=== PATIENT | female | born 1985 | race American Indian/Alaskan Native ===

== ENCOUNTER 2017-07-11 18:21 | Emergency (ER) | payer OTHER ==
[2017-07-11 22:04] LABS: Basophils # (Auto) 0.1 K/mm3 (0.0-0.1); Basophils % (Auto) 1.1 % (0.0-1.8); Eosinophils # (Auto) 0.1 K/mm3 (0.0-0.4); Eosinophils % (Auto) 1.5 % (0.0-4.3); Hematocrit 41.1 % (30.3-42.9); Hemoglobin 13.7 gm/dl (10.1-14.3); Lymphocytes # (Auto) 2.7 K/mm3 (1.2-5.4); Lymphocytes % (Auto) 28.6 % (13.4-35.0); Mean Corpuscular HGB Conc 33 % (30-34); Mean Corpuscular Hemoglobin 28 pg (28-32); Mean Corpuscular Volume 83 fl (79-97); Monocytes # (Auto) 0.7 K/mm3 (0.0-0.8); Monocytes % (Auto) 7.5 % (0.0-7.3); Platelet Count 373 K/mm3 (140-440); Red Blood Count 4.96 M/mm3 (3.65-5.03); Red Cell Distribution Width 12.7 % (13.2-15.2)
--- NOTE | 2017-07-12 00:51 | Ultrasound Report ---
FINAL REPORT EXAM: US OB TRANSVAGINAL HISTORY: Vaginal bleeding TECHNIQUE: Transvaginal imaging was obtained of the pelvis. Doppler interrogation of the uterus was also obtained. FINDINGS: The uterus is retroverted and contains a gestational sac. Within the gestational sac is a yolk sac and pole. The crown-rump length of the pole is 6.6 millimeters corresponding to a 6 weeks 4 day IUP. The heart is 125 BPM. The cervix is closed. There is several small nabothian cysts in the cervix. Adjacent to the gestational sac is a small subchorionic hemorrhage measuring 18 millimeters x 9 millimeters x 13 millimeters. Free fluid is not seen. The right ovary measures 4.5 cm x 2.6 cm x 3.6 cm. Within the right ovary is a complex cyst measuring 2.4 cm in diameter. The left ovary is normal size contour and echotexture measuring 3.6 cm x 1.8 cm x 3.1 cm. IMPRESSION: Single viable IUP, 6 weeks 4 days. heart is 125 BPM. Small subchorionic hemorrhage measuring 18 millimeters x 9 millimeters x 13 millimeters. No evidence of free fluid the pelvis.
--- NOTE | 2017-07-12 00:53 | Ultrasound Report ---
FINAL REPORT EXAM: US OB < = 14 WEEKS FETUS HISTORY: Vaginal bleeding TECHNIQUE: Transabdominal imaging was obtained of the pelvis with Doppler interrogation of the uterus and adnexa. FINDINGS: The uterus is retroverted and contains a gestational sac. Within the sac is a yolk sac and pole. The pole measures 6.6 millimeters and crown-rump length. This corresponds to a 6 weeks 4 day IUP. The heart rate is 125 BPM. The cervix is closed. There are several nabothian cysts in the cervix. Adjacent to the gestational sac is a hypoechoic area compatible with a subchorionic hemorrhage measuring 18 millimeters x 9 millimeters x 13 millimeters. Free fluid is not seen. The maternal left ovary is normal size contour and echotexture measuring 3.6 cm x 1.8 cm x 3.1 cm. The maternal right ovary measures 4.5 cm x 2.6 cm x 3.6 cm and contains a complex cyst measuring 2.4 cm in diameter. IMPRESSION: Single viable IUP, 6 weeks 4 days. heart is 125 BPM. Small subchorionic hemorrhage as measured. Probable right corpus luteum cyst measuring 2.4 cm in diameter.
[2017-07-12 03:44] LABS: Bilirubin,Urine NEG (Negative); Blood,Urine SM (Negative); Color,Urine Yellow (Yellow); Mucus,Urine 3+ /HPF; Nitrite,Urine NEG (Negative); Protein,Urine <15 mg/dL mg/dL (Negative); Urobilinogen,Urine < 2.0 mg/dL (<2.0)
[2017-07-12 04:11] VITALS: BP 118/80
== END 2017-07-11 21:45 | disposition left against medical advice (07) ==
LOC: ED 18:21
DX: O46.91 Antepartum hemorrhage, unspecified, first trimester (principal); Z53.21 Procedure and treatment not carried out due to patient leaving prior to being seen by health care provider
CPT/HCPCS: 36415; 76801; 76817; 81001; 84702; 85025; 86850; 86900; 86901

== ENCOUNTER 2019-08-06 15:27 | Outpatient (CLI) | payer MEDICAID, OTHER ==
[2019-08-06 15:54] VITALS: BP 116/70
[2019-08-06] MEDS ORDERED: LACTATED RINGERS 1,000 ML IV SCH (17:00)
--- NOTE | 2019-08-06 18:35 | Ultrasound Report ---
OBSTETRICAL ULTRASOUND WITH BIOPHYSICAL PROFILE HISTORY: Increased movement. FINDINGS: Limited obstetrical ultrasound was performed. A viable intrauterine is dated 36 w eeks 4 days by ultrasound. Estimated weight is 6 lbs. 8 oz. (51%). position is cephalic. heart tones are 141 bpm. Amniotic fluid index is 14.9 cm. Biophysical profile is 6-8. A score 0 was received for breathing movements. IMPRESSION: 1. Viable intrauterine dated 36 weeks 4 days. 2. Biophysical profile 6/8. Breathing movements were not identified. Signer Name: Viral Wolf MD Signed: 08/06/2019 6:30 PM Workstation Name: [id number]
[2019-08-06 18:49] LABS: Bacteria,Urine 2+ /HPF (Negative); Bilirubin,Urine NEG (Negative); Blood,Urine NEG (Negative); Color,Urine Yellow (Yellow); Mucus,Urine FEW /HPF; Protein,Urine <15 mg/dL mg/dL (Negative); Urobilinogen,Urine < 2.0 mg/dL (<2.0)
--- NOTE | 2019-08-06 19:10 | Event Note ---
Date: 08/06/19 (Decreased movement) Pt @ 36.4 wks, presented to triage with c/o decreased movement. She denies vaginal bleeding, LOF, ctxs. However, movement could be heard and NST for reactive. BPP was performed and was 6/8, off for breathing. I went to see the pt after the BPP was performed and heard 3 movements in 6 minutes. I stood at the bedside for an additional 5 minutes and heard 4 more movements. Pt stated that she did not feel the movements, but heard them on the monitor. Consulted with Dr. Guido regarding pt BPP, NST. Plan is to have pt follow up in the office this week, and keep scheduled appointment with [facility] on . I explained this to the pt and she was given strict precautions and kick counts were explained to her. Pt was discharged home in stable condition.
== END 2019-08-06 19:05 | disposition home or self-care (01) ==
LOC: TRG 15:27
PROVIDERS: ATTEND Obstetrics & Gynecology
DX: O36.8130 Decreased fetal movements, third trimester, not applicable or unspecified (principal); Z3A.36 36 weeks gestation of pregnancy
CPT/HCPCS: 59025; 76816; 76819; 81001

== ENCOUNTER 2019-08-21 09:28 | Inpatient (IN) | payer MEDICAID, OTHER ==
--- NOTE | 2019-08-20 17:26 | History and Physical Report ---
History of Present Illness Date of examination: 08/17/19 Chief complaint: Repeat C/S with h/o IUFD in the third trimester History of present illness: Patient scheduled for C/S at 38 5/7weeks d/t AMFM recommendations Past History : 6 Term Births: 2 Premature Births: 0 Living Children: 1 Para: 2 Mult. Births: 0 Prev : 2 Prev. attempt? 1 Aborta: 3 Elect. Ab: 2 Spont. Ab: 1 Ectopics: 0 # 1 Delivery date: 11/02/2006 Weeks Gestation: 41 Delivery type: Anesthesia type: epidural Delivery location: [facility] Infant Sex: Male weight: 7lb 15oz Comments: NRFHT hyperemesis # 2 Delivery date: 11/28/2008 Delivery type: EAB # 3 Delivery date: 08/2016 Delivery type: EAB # 4 Delivery date: 02/09/2018 Weeks Gestation: 39 labor: no Delivery type: Anesthesia type: epidural Delivery location: [facility] Infant Sex: Female Name: Bridget Martino Comments: Pre e. mag. placental abruption. demise, blood transfusion, MARY CARMEN sent for records # 5 Delivery date: 11/05/2018 Delivery type: SAB Comments: blighted ovum Past Medical History: Reviewed history from 09/23/2010 and no changes required: asthma. last inhaler use September pre eclampsia blood transfusion hyperemesis Past Surgical History: Reviewed history from 07/26/2017 and no changes required: D&C: (2008)EAB 2017 () Past Medical History Abnormal PAP: negative TARAH Exposure: negative Infertility: negative Uterine Anomaly: negative Uterine Surgery (not C/S): negative Other Gynecologic Problems: negative Family Hx: DM-MGM Lung CA-MGM smokier No Family History of Breast Cancer No Family History of Colon Cancer No Family History of Ovarvian Cancer No Family History of DVT/PE on OCP mother- asthma Social Hx: Patient is single, lives with FOC and son no e/t/d works as mail room [employer] Infection History Hx of STD: none HIV Risk Eval: low risk Hepatitis B Risk Eval: low risk Personal hx. of genital herpes: no Partner hx. of genital herpes: no Rash, Viral, or Febrile illness since last LMP? no Varicella/Chicken Pox Status: Immunized TB Risk: no Infection History Comments: hsv2 Genetic History Congenital Heart Defect: Mom: no Dad: no Elvis Disease: Mom: no Dad: no Thalassemia Mom: no Dad: no Neural Tube Defect Mom: no Dad: no Down's Syndrome Mom: no Dad: no Charles-Sachs Mom: no Dad: no Sickle Cell Disease/Trait Mom: no Dad: no Hemophilia Mom: no Dad: no Muscular Dystrophy Mom: no Dad: no Cystic Fibrosis Mom: no Dad: no Shaina Chorea Mom: no Dad: no Mental Retardation Mom: no Dad: no Fragile X Mom: no Dad: no Other Genetic/Chromosomal Disorder Mom: no Dad: no Child w/other defect Mom: no Dad: no Enviromental Exposures Enviromental Exposures Reviewed Xray Exposure: no Medication, drug, or alcohol use since LMP: no Chemical/Other Exposure: no Exposure to Cat Liter: no Hx of Parvovirus (Fifth Disease): no Occupational Exposure to Children: none Active Medications (reviewed today): PRO AIR Current Allergies (reviewed today): * SULFA (Critical) Physical Exam General appearance: well nourished, healthy appearing, no distress Chest/Lungs: respiratory effort normal, lungs clear to auscultation Cardiovascular: normal rate and rhythm Past History - Obstetrical History Expected Date of Delivery: 08/30/19 Actual Gestation: 38 Week(s) 4 Day(s) : 8 Medications and Allergies Allergies Allergy/AdvReac Type Severity Reaction Status Date / Time Sulfa (Sulfonamide Allergy Hives Verified 07/11/17 21:20 Antibiotics) sulfamethoxazole Allergy Hives Verified 07/11/17 21:20 [From Bactrim] trimethoprim [From Bactrim] Allergy Hives Verified 07/11/17 21:20 Results All other labs normal. Assessment and Plan - Patient Problems (1) 38 weeks gestation of Status: Acute (2) Maternal care due to low transverse uterine scar from previous delivery Status: Chronic Plan to address problem: Consent reviewed and signed . The risks and alternatives for this surgery were reviewed with the patient. She was informed of possible bleeding, infection, injury to bowel, bladder, ureters or other adjacent organs. The patient was instructed/informed the following: The normal length of hospital stay for this procedure. Nothing to eat or drink up to 8hours before arriving to the hospital Clear liquids up to 2hours before arriving to the hospital Pre-op instruction sheets given. Wound care instructions given. Infection precautions reviewed, patient to call for any signs or symptoms of infection. The usual discomforts associated with this procedure were detailed. Patient was given ample opportunity to have all her questions answered before signing in formed consent. She declines sterilization, she was informed she will be at increased risks for poor outcome with complications with each addn'l and c/s. She still declined BTL (3) Supervision of with other poor reproductive or obstetric history, third trimester Status: Acute (4) BMI 40.0-44.9, adult Status: Chronic (5) Asthma Status: Chronic
[2019-08-21] MEDS ORDERED: ceFAZolin/Water 2 GM/20 ML 2 GM/20 ML SYRINGE IV NR (10:00)
[2019-08-21] MEDS ORDERED: METOCLOPRAMIDE 10 MG/2 ML INJ IV NR (10:00)
[2019-08-21] MEDS ORDERED: OXYTOCIN 20 UNIT/1000ML DRIP 20 UNITS/1,000 ML BAG IV SCH ×2 (10:00→15:12)
[2019-08-21] MEDS ORDERED: BICITRA ORAL LIQD 30ML PO NR (10:00)
[2019-08-21] MEDS ORDERED: FAMOTIDINE 20 MG/2 ML INJ IV NR (10:00)
[2019-08-21] MEDS: LACTATED RINGERS 1,000 ML IV SCH ×2 (10:35→11:36)
[2019-08-21 10:44] LABS: Hematocrit 30.1 % (30.3-42.9); Hemoglobin 9.5 gm/dl (10.1-14.3); Mean Corpuscular HGB Conc 32 % (30-34); Mean Corpuscular Volume 71 fl (79-97); Platelet Count 297 K/mm3 (140-440); Red Blood Count 4.27 M/mm3 (3.65-5.03); Red Cell Distribution Width 17.8 % (13.2-15.2)
--- NOTE | 2019-08-21 11:17 | Anesthesia Consultation ---
Anesthesia Consult and Med Hx Date of service: 08/21/19 - Airway Anesthetic Teeth Evaluation: Poor ROM Head & Neck: Adequate Mental/Hyoid Distance: Adequate Mallampati Class: Class III Intubation Access Assessment: Probably Good - Pulmonary Exam CTA: Yes - Cardiac Exam Cardiac Exam: RRR - Pre-Operative Health Status ASA Pre-Surgery Classification: ASA3 Proposed Anesthetic Plan: Spinal - Pre-Anesthesia Comment Pre-Anesthesia Comments: PSH: C/Section x 2, no complications - Pulmonary Hx Smoking: No Hx Asthma: Yes Hx Respiratory Symptoms: No SOB: No COPD: No Home Oxygen Therapy: No Hx Pneumonia: No Hx Sleep Apnea: No - Cardiovascular System Hx Hypertension: No Hx Coronary Artery Disease: No Hx Heart Attack/AMI: No Hx Angina: No Hx Percutaneous Transluminal Coronary Angioplasty (PTCA): No Hx Cardia Arrhythmia: No Hx Pacemaker: No Hx Internal Defibrillator: No Hx Valvular Heart Disease: No Hx Heart Murmur: No Hx Peripheral Vascular Disease: No - Central Nervous System Hx Neuromuscular Disorder: No Hx Seizures: No CVA: No Hx Back Pain: Yes Hx Psychiatric Problems: No - Gastrointestinal Hx Ulcer: No Hx Gastroesophageal Reflux Disease: Yes - Endocrine Hx Renal Disease: No Hx End Stage Renal Disease: No Hx Cirrhosis: No Hx Liver Disease: No Hx Insulin Dependent Diabetes: No Hx Non-Insulin Dependent Diabetes: No Hx Thyroid Disease: No Hx Hypothyroidism: No Hx Hyperthyroidism: No - Hematic Hx Anemia: No Hx Sickle Cell Disease: No - Other Systems Hx Alcohol Use: No Hx Substance Use: No Hx Cancer: No Hx Obesity: Yes
[2019-08-21] MEDS ORDERED: HYDROmorphone 1 MG/1 ML INJ IV PRN (11:19)
[2019-08-21] MEDS ORDERED: ONDANSETRON 4 MG/2 ML INJ IV PRN (11:19)
--- NOTE | 2019-08-21 11:19 | Anesthesia Day of Surgery ---
Anesthesia Day of Surgery - Day of Surgery Patient Examined: Yes Patient H&P Reviewed: Yes Patient is NPO: Yes Beta Blockers: No Cardiac Clearance: No Pulmonary Clearance: No Chilango's Test: N/A
[2019-08-21] MEDS ORDERED: FLU VACC QUAD 2019-20 (3 YR UP)/PF 60 MCG/0.5 ML SYRINGE IM ONE (11:24)
[2019-08-21] MEDS ORDERED: ONDANSETRON 4 MG/2 ML INJ ONE (11:27)
[2019-08-21] MEDS ORDERED: DEXMEDETOMIDINE 200 MCG/2 ML VIAL IV ONE (11:27)
[2019-08-21] MEDS ORDERED: ceFAZolin/STERILE WATER 2 GM/20 ML SYRINGE IV ONE (11:52)
[2019-08-21] MEDS ORDERED: SODIUM CHLORIDE 0.9% IRR 1,500 ML BOTTLE IR ONE (12:05)
[2019-08-21] MEDS ORDERED: WATER FOR IRRIG STERILE 1,500 ML BOTTLE IR ONE (12:05)
[2019-08-21] MEDS ORDERED: KETOROLAC 30 MG/1 ML INJ ONE (12:24)
--- NOTE | 2019-08-21 13:08 | Operative Report ---
Operative Report Operative Report: Date of operation: 08/21/2019 Pre-operative diagnosis: 1. 38 weeks and 5 days weeks gestational age 2. History of IUFD third trimester 3. Delivery at this date as recommended by maternal- medicine 4. BMI 41kg/m2 5. Previous delivery x2 Post-operative diagnosis: 1. 38 weeks and 5 days weeks gestational age 2. History of IUFD third trimester 3. Delivery at this date as recommended by maternal- medicine 4. BMI 41kg/m2 5. Previous delivery x2 Procedure name(s): Low transverse delivery Surgeon: Juany Lechuga MD Field Crew Chief: [] Anesthesia: Spinal EBL: 700 mL Urine output: 100 mL of clear urine out at the end of the procedure Fluids: [] mL Findings: Liveborn male weight 7 Lbs. 3 oz. Apgars of 9 and 9 at one and 5 minutes Indications: [] Procedure: Patient was taking to the operating room. Spinal anesthesia was placed. Patient was then prepped and draped in the usual sterile fashion Timeout was performed. Once an appropriate level of anesthesia was noted, a Pfannenstiel incision was made and extended the fascia which was incised and extended lateral direction. The overlying fascia was sharply dissected away from the underlying rectus muscles in the superior inferior direction. The midline was entered bluntly. Bladder blade was placed. Vesicouterine fold was incised with blunt dissection bladder flap was created. A transverse incision was made in the lower uterine segment and extended superolateral direction with finger fractionation. Clear fluid was noted. was delivered from the cephalic position, with spontaneous cry and excellent tone. Mouth and nose bulb suctioned. Cord was doubly clamped and cut was given to the resuscitation team present. Placenta was delivered. The uterus was exteriorized and cleaned of any further placental tissue and products of conception. Uterine incision was approximated using 0 Vicryl in a running interlocking stitch followed by further suture of 0 Vicryl in imbricating fashion. When hemostasis was noted the uterus was allowed back in the pelvic cavity. Pelvis was irrigated with warm normal saline. Once hemostasis was noted the rectus muscles were approximated using 3-0 Vicryl interrupted simple stitches 3. Once hemostasis was noted the fascia was approximated using 0 Vicryl simple running stitch. The incision was irrigated with warm saline, once hemostasis as noted, skin was approximated using 4-0 Vicryl on a Matt needle in a subcuticular manner. Counts were correct x3. Patient tolerated the procedure well, she was taken to recovery room in stable condition.
[2019-08-21] MEDS ORDERED: MORPHINE 4 MG/1 ML INJ IV PRN (15:12)
[2019-08-21] MEDS ORDERED: PROMETHAZINE 25 MG RECT SUPP PR PRN (15:12)
[2019-08-21] MEDS ORDERED: MORPHINE 2 MG/1 ML INJ IV PRN (15:12)
[2019-08-21] MEDS ORDERED: ACETAMINOPHEN 650 MG RECT SUPP PR PRN (15:12)
[2019-08-21] MEDS ORDERED: WITCH HAZEL/ GLYCERIN PAD TP PRN (15:12)
[2019-08-21] MEDS ORDERED: D5W/LACTATED RINGERS 1,000 ML IV SCH (15:12)
[2019-08-21] MEDS ORDERED: MAGNESIUM HYDROXIDE (MOM) ORAL LIQD UDC PO PRN (15:12)
[2019-08-21] MEDS ORDERED: SIMETHICONE 80 MG CHEW TAB PO PRN (15:12)
[2019-08-21] MEDS ORDERED: LANOLIN/ZINC/DIMETHICONE (LANSINOH) 7 GM TP PRN (15:12)
[2019-08-21] MEDS ORDERED: NALOXONE 0.4 MG/1 ML INJ IV PRN (15:12)
[2019-08-21] MEDS: ACETAMINOPHEN 325 MG TAB PO SCH ×2 (15:52→20:40)
[2019-08-21] MEDS: KETOROLAC 30 MG/1 ML INJ IV SCH ×2 (18:13→23:36)
[2019-08-21] MEDS: ceFAZolin/NS 1 GM/50 ML 1 GM/50 ML BAG IV SCH (20:44)
[2019-08-22 01:08] LABS: Hematocrit 26.4 % (30.3-42.9); Hemoglobin 8.4 gm/dl (10.1-14.3)
[2019-08-22] MEDS: ACETAMINOPHEN 325 MG TAB PO SCH ×2 (03:32→10:06)
[2019-08-22] MEDS: KETOROLAC 30 MG/1 ML INJ IV SCH ×2 (05:45→13:09)
[2019-08-22] MEDS: ceFAZolin/NS 1 GM/50 ML 1 GM/50 ML BAG IV SCH (05:55)
[2019-08-22] MEDS ORDERED: TETANUS,DIPH,PERTUSS(ACELL) VACCINE 0.5 ML SYRINGE IM ONE (06:00)
--- NOTE | 2019-08-22 08:17 | Progress Note ---
Assessment and Plan A: 34 y.o. rpt @ term. States pain not controlled by pain medication, but not taking pain medication as ordered. P: Continue with care. Advance diet as tolerated. Encourage ambulation. Pt to get pain medication as ordered. RN and pt aware. Anticipate d/c home 08/23. Subjective - Subjective Patient reports: appetite normal, voiding normally, flatus, pain poorly controlled (Pt has not been taking pain medication as ordered or asking for pain medication. Discussed pain medication and when to take. ), ambulating normally Girard: doing well Objective - Vital Signs Latest vital signs: Vital Signs Temp Pulse Resp BP BP Pulse Ox 08/22/19 05:19 98.8 F 90 20 110/65 96 08/22/19 01:18 98.0 F 83 20 129/67 97 08/21/19 23:36 18 08/21/19 20:35 98.0 F 77 18 123/63 99 08/21/19 15:09 97.4 F L 79 16 122/60 100 08/21/19 13:55 84 20 109/68 100 08/21/19 13:40 94 H 20 118/79 100 08/21/19 13:25 91 H 19 93/63 100 08/21/19 13:20 82 19 111/64 100 08/21/19 13:15 77 18 114/59 100 08/21/19 13:10 97.7 F 82 18 105/62 100 08/21/19 11:07 98.3 F 08/21/19 09:53 114 H 97 08/21/19 09:50 121/71 Intake and Output 08/21/19 08/22/19 08/22/19 22:59 06:59 14:59 Intake Total 770 240 Output Total 2450 1300 Balance -1680 -1060 Intake: IV 50 ANCEF/NS 1 GM/50 ML 1 gm 50 In 50 ml @ 100 mls/hr IV Q8H [facility] Rx#:[id number] Oral 720 240 Output: Urine 2450 1300 Indwelling Catheter 1450 Uretheral ([place]ancey) 1000 400 Void 900 Other: Total, Intake Amount 240 120 Total, Output Amount 700 300 - Exam Breasts: Present: deferred Cardiovascular: Present: Regular rate, Normal S1, Normal S2 Lungs: Present: Clear to auscultation Abdomen: Present: normal appearance, soft Vulva: both: normal Uterus: Present: normal, firm Extremities: Present: normal Deep Tendon Reflex Grade: Normal +2 Incision: Present: normal, dry, intact, dressed (Dressing intact no drainage noted. Due to come off this afternoon per RN. ) - Labs Labs: Abnormal lab results 08/21/19 08/22/19 Range/Units 10:15 00:36 Hgb 9.5 L 8.4 L (10.1-14.3) gm/dl Hct 30.1 L 26.4 L (30.3-42.9) % MCV 71 L (79-97) fl MCH 22 L (28-32) pg RDW 17.8 H (13.2-15.2) %
[2019-08-22] MEDS: oxyCODONE /ACETAMINOPHEN 5-325MG TAB PO PRN ×3 (09:04→22:42)
[2019-08-22] MEDS ORDERED: FLU VACC QUAD 2019-20 (3 YR UP)/PF 60 MCG/0.5 ML SYRINGE IM ONE (12:00)
[2019-08-22] MEDS ORDERED: IBUPROFEN 800 MG TAB PO PRN (12:54)
--- NOTE | 2019-08-22 20:59 | Post Anesthesia Evaluation ---
- Post Anesthesia Evaluation Patient Participated: Yes Airway Patent: Yes Stable Respiratory Function: Yes Nausea/Vomiting: No Temp > 96.8F: Yes Pain Manageable: Yes Adequeate Hydration: Yes Anesthesia Complications: No Block Receding Appropriately: Yes
--- NOTE | 2019-08-23 07:41 | Discharge Summary ---
Providers - Providers Date of Admission: 08/21/19 09:28 Date of discharge: 08/23/19 (Pt agrees with D/C home today) Attending physician: LORIE DWYER 08/21/19 15:12 Consult to Billing Machine Operator [CONS] Routine Reason For Exam: Primary care physician: TAJ CARCAMO Hospitalization Condition: Good Pertinent studies: VSSAF. Post-op H/H 826. Drop d/t blood loss from delivery. Procedures: Uncomplicated repeat C/S x 3 Hospital course: Repeat C/S x 3 at 38.5wks. Uncomplicated delivery and PP course. Disposition: - TO HOME OR SELFCARE - Discharge Diagnoses (1) delivery delivered Status: Acute Comment: Pt resting in bed. VSSAF. Pain is managed with pain medication prescribed. Home Rx done. Incision clean, dry, and intact. Steri strips in place with minimal blood staturation. FF and at umbilicus. Light vaginal bleeding. +flatus. Breast and bottle feeding. Desires circumcision. PoPs for PP contraception. D/C home today. F/U in office in 1-week for incision check. (2) Anemia Status: Acute Comment: Pt reports sporadic periods of dizziness at rest or with ambulation. Denies chest pain, SOB, blurry vision, or generalized weakness. Post-op H/H 02/19 d/t blood loss from delivery. PO iron supplementation Rx given for D/C home. Advised slow position changes and water hydration. Core Measure Documentation - Palliative Care Palliative Care/ Comfort Measures: Not Applicable - Core Measures Any of the following diagnoses?: none Exam - Constitutional Vitals: Temp Pulse Resp BP Pulse Ox 98.1 F 78 18 134/68 100 08/23/19 00:00 08/23/19 00:00 08/23/19 00:00 08/23/19 00:00 08/23/19 00:00 General appearance: Present: no acute distress, well-nourished - EENT Eyes: Present: PERRL ENT: hearing intact, clear oral mucosa - Neck Neck: Present: supple, normal ROM - Respiratory Respiratory effort: normal Respiratory: bilateral: CTA - Cardiovascular Heart Sounds: Present: S1 & S2. Absent: rub, click - Extremities Extremities: pulses symmetrical, No edema Peripheral Pulses: within normal limits - Abdominal General gastrointestinal: Present: soft, non-tender, non-distended, normal bowel sounds Female genitourinary: Present: normal - Rectal Rectal Exam: deferred - Integumentary Integumentary: Present: clear, warm, dry - Musculoskeletal Musculoskeletal: gait normal, strength equal bilaterally - Psychiatric Psychiatric: appropriate mood/affect, intact judgment & insight - Neurologic Neurologic: CNII-XII intact, moves all extremities Plan Activity: no restrictions, advance as tolerated Weight Bearing Status: Full Weight Bearing Diet: regular Wound: open to air, keep clean and dry Follow up with: LORIE DWYER MD [Staff Physician] - 7 Days (Congratulations! Please call our office at [phone] to schedule your son's 1-week circumcision appointment. Bring EMLA cream to his appointment for further instruction. Also follow-up in our office in 1-week for your appointment. Contact us with any questions or concerns. ) Prescriptions: Docusate Sodium [Colace] 100 mg PO BID PRN #30 capsule PRN Reason: Constipation Lidocain2.5%/Prilocai2.5% [Emla] 5 gm TP ONCE #1 tube Ferrous Sulfate [Feosol 325 MG tab] 325 mg PO BID #90 tablet Ibuprofen [Motrin 800 MG tab] 800 mg PO TID PRN #30 tablet PRN Reason: Pain oxyCODONE /ACETAMINOPHEN [Percocet 5/325 mg] 1 - 2 tab PO Q4HR PRN #20 tablet PRN Reason: Pain
[2019-08-23] MEDS: oxyCODONE /ACETAMINOPHEN 5-325MG TAB PO PRN (07:54)
[2019-08-23 15:04] VITALS: BP 131/88
== END 2019-08-23 15:30 | disposition home or self-care (01) | DRG 765 ==
LOC: APU 09:28 → OB 15:07
PROVIDERS: ADMIT Obstetrics & Gynecology; ATTEND Obstetrics & Gynecology
PROC: 10D00Z1 Extraction of Products of Conception, Low, Open Approach (ICD-10-PCS; principal; 2019-08-21)
PROC: 3E0234Z Introduction of Serum, Toxoid and Vaccine into Muscle, Percutaneous Approach (ICD-10-PCS; 2019-08-22)
DX: O99.214 Obesity complicating childbirth (principal); D62 Acute posthemorrhagic anemia; O34.219 Maternal care for unspecified type scar from previous cesarean delivery; O99.52 Diseases of the respiratory system complicating childbirth; O14.94 Unspecified pre-eclampsia, complicating childbirth; E66.9 Obesity, unspecified; J45.909 Unspecified asthma, uncomplicated; O90.81 Anemia of the puerperium; Z80.3 Family history of malignant neoplasm of breast; Z3A.38 38 weeks gestation of pregnancy; Z37.0 Single live birth; Z23 Encounter for immunization; Z80.8 Family history of malignant neoplasm of other organs or systems; Z80.41 Family history of malignant neoplasm of ovary; Z82.5 Family history of asthma and other chronic lower respiratory diseases; Z88.2 Allergy status to sulfonamides; Z88.1 Allergy status to other antibiotic agents
CPT/HCPCS: 36415; 85014; 85018; 85027; 86592; 86850; 86900; 86901; 90686; G0378; J0690; J1885; J2405; J2590; J2765; J3490; J7120